=== PATIENT | female | born 1975 | race Asian ===

== ENCOUNTER 2017-01-06 09:55 | Outpatient (CLI) | payer OTHER ==
[2017-01-06 10:34] LABS: BILIRUBIN,URINE NEGATIVE (NEGATIVE); BLOOD, URINE 1+ (NEGATIVE); CLARITY/URINE CLEAR (CLEAR); COLOR,URINE YELLOW (YELLOW); GLUCOSE,URINE NEGATIVE (NEGATIVE); KETONES,URINE NEGATIVE (NEGATIVE); LEUKOCYTE ESTERASE ,URINE NEGATIVE (NEGATIVE); NITRITE, URINE NEGATIVE (NEGATIVE); PROTEIN URINE NEGATIVE (NEGATIVE); UROBILINOGEN,URINE 0.2 (0.2-1.0)
[2017-01-06 10:42] LABS: BASOPHILS # (AUTO) 0.1 K/uL (0.0-0.2); BASOPHILS % (AUTO) 1.2 % (0.0-2.0); EOSINOPHILS # (AUTO) 0.2 K/uL (0.0-0.4); HEMATOCRIT 41.2 % (36-48); HEMOGLOBIN 13.7 g/dL (12.0-16.0); LYMPHOCYTES % (AUTO) 36.5 % (20.5-51.5); MEAN CORPUSCULAR HEMOGLOBIN 27 pg (27-31); MEAN CORPUSCULAR HGB CONC 33 % (32-36); MEAN CORPUSCULAR VOLUME 82 fL (79.0-98.0); MONOCYTES # (AUTO) 0.5 K/uL (0.0-1.0); MONOCYTES % (AUTO) 5.5 % (1.7-9.3); NEUTROPHILS # (AUTO) 4.5 K/uL (1.8-7.7); NEUTROPHILS % (AUTO) 53.8 % (40.0-70.0); PLATELET COUNT (AUTO) 441 K/uL (130-430); RED BLOOD CELL COUNT(AUTO) 5.03 MIL/uL (4.2-6.2); RED CELL DISTRIBUTION WIDTH 12.1 % (9.0-15.0); WHITE BLOOD COUNT (AUTO) 8.3 K/uL (4.8-10.8)
[2017-01-06 10:50] LABS: BACTERIA,URINE FEW /HPF (None Seen); CALCIUM 9.4 mg/dL (8.4-11.0); MUCUS,URINE None Seen /LPF (None Seen); POTASSIUM 3.9 mmol/L (3.5-5.1); RBC,URINE 0-3 /HPF (0-3); WBC,URINE 0-3 /HPF (0-3)
[2017-01-06 10:51] LABS: CREATININE 0.63 mg/dL (0.55-1.30); FREE T4 (FREE THYROXINE) 0.8 ng/dL (0.6-1.6); THYROID STIMULATING HORMONE 0.28 uIu/mL (0.34-4.82); TOTAL BILIRUBIN 0.5 mg/dL (0.0-1.0); TOTAL PROTEIN, SERUM 8.3 g/dL (6.4-8.3); URIC ACID 5.3 mg/dL (2.4-7.0)
[2017-01-06 11:33] LABS: ERYTHROCYTE SEDIMENTATION RATE 17 MM/HR (0-20)
[2017-01-07 08:06] LABS: RA LATEX TURBID <10.0 IU/mL (0.0-13.9)
[2017-01-07 14:21] LABS: ANTI NUCLEAR AB WITH REFLEX Negative (Negative)
[2017-01-08 17:46] LABS: HEMOGLOBIN A1C 5.8 % (4.8-5.6)
== END 2017-01-06 20:13 | disposition home or self-care (01) ==
LOC: SLB 09:55
PROVIDERS: ATTEND Internal Medicine
DX: Z00.00 Encounter for general adult medical examination without abnormal findings (principal)
CPT/HCPCS: 36415; 80053; 80061; 81000-TC; 82306; 82607; 83036; 83735-TC; 84439; 84443-TC; 84550-TC; 85025; 85651-TC; 86038; 86431; 93005

== ENCOUNTER 2017-01-07 12:14 | Outpatient (CLI) | payer OTHER | END 2017-01-07 20:15 | disposition home or self-care (01) | LOC: SCA 12:14 | PROVIDERS: ATTEND Internal Medicine | DX: I10 Essential (primary) hypertension (principal); I34.1 Nonrheumatic mitral (valve) prolapse; I07.1 Rheumatic tricuspid insufficiency; R16.2 Hepatomegaly with splenomegaly, not elsewhere classified | CPT/HCPCS: 93306 ==

== ENCOUNTER 2017-01-13 09:27 | Outpatient (CLI) | payer OTHER | END 2017-01-13 20:04 | disposition home or self-care (01) | LOC: SUS 09:27 | PROVIDERS: ATTEND Internal Medicine | DX: E04.9 Nontoxic goiter, unspecified (principal); M19.011 Primary osteoarthritis, right shoulder; M25.511 Pain in right shoulder | CPT/HCPCS: 73221; 76536-TC ==